=== PATIENT | male | born 1960 | race Caucasian/White ===

== ENCOUNTER 2021-11-29 00:50 | Day surgery (SDC) | payer MEDICARE, SELFPAY ==
[2021-11-15 13:56] VITALS: BMI 28.8
--- NOTE | 2021-11-26 15:22 | PM.HPGS ---
History of Present Illness History of Present Illness Consent: Risks, benefits, and alternatives have been discussed and questions answered. Patient agrees to proceed with procedure. Chief complaint: neoplasm screening Narrative: Mario Palumbo is a 61 year old male referred for colon cancer screening. He has a family history of colon cancer. His mother his maternal aunt had colon cancer Review of Systems Review of Systems: All systems reviewed & are unremarkable except as noted in HPI and below PMFSH Past Medical History Medical History (Updated 11/29/21 @ 06:34 by Nathan Albarado DO) Hyperlipidemia Hypertension Social History Social History (Updated 11/29/21 @ 07:03 by Nathan Albarado DO) Smoking packs per day: 0.5 Smoking cigarettes per day: 10.0 Years smoked: 20 Smoking pack-years: 10.00 Smoking status: Former smoker Tobacco type: cigarettes Smoking end date: 03/20/91 Additional smoking assessment comments: still vapes Alcohol intake: current Alcohol use details: only on occasion Substance use: never Substance use type: does not use Living arrangements: with family Spiritual care concerns: No Meds Home Medications and Allergies Home Medications Medication Instructions Recorded Confirmed Type amlodipine 5 mg tablet 5 mg PO DAILY 11/15/21 11/29/21 History bupropion HCl 300 mg 24 hr tablet, 300 mg PO DAILY 11/15/21 11/29/21 History extended release citalopram 20 mg tablet 20 mg PO DAILY 11/15/21 11/29/21 History loteprednol etabonate 0.5 % eye 1 drp RIGHT EYE QID 11/15/21 11/29/21 History drops,suspension mycophenolate mofetil 500 mg tablet 500 mg PO DAILY 11/15/21 11/29/21 History ofloxacin 0.3 % eye drops 4 drp EACH EYE QID 11/15/21 11/29/21 History trazodone 100 mg tablet 100 mg PO HS 11/15/21 11/29/21 History Allergies Allergy/AdvReac Type Severity Reaction Status Date / Time No Known Allergies Allergy Verified 11/29/21 06:21 Exam Resp: Auscultation: clear to auscultation bilaterally Cardio: Rate: regular rate Rhythm: regular rhythm GI: GI Palp: Yes Soft to palpation and No Tenderness to palpation present (GI) Assessment and Plan Assessment and plan (1) Colon cancer screening: Code(s): Z12.11 - Encounter for screening for malignant neoplasm of colon Status: Acute Assessment and Plan: Colonoscopy with possible biopsy or polypectomy or cautery or injection of substances.
[2021-11-29 06:22] VITALS: BP 150/90; PULSE 75; RESP 16; TEMP 36.4; O2SAT 97; BMI 28.6
[2021-11-29] MEDS: LACTATED RINGERS 1,000 ML 150 ML IV CONT (06:32)
--- NOTE | 2021-11-29 06:34 | WPDANESEPPF ---
Anes - Initial Pre Proc Eval Procedure: Operation Date: 11/29/21 07:30 Proposed Procedures p Screening Colonoscopy - Isaac Giraldo MD Date/Time: 11/29/21 06:34 Surgeon: Isaac Giraldo MD Pre Op Diagnosis: neoplasm screening Patient Data Age: 61 Gender: M Height: 1.78 m Weight: 90.6 kg Last Vital Signs Temp 36.4 C L 11/29/21 06:22 Pulse 75 11/29/21 06:22 Resp 16 11/29/21 06:22 BP 150/90 H 11/29/21 06:22 Pulse Ox 97 11/29/21 06:22 O2 Del Method Room Air 11/29/21 06:22 Allergies Allergy/AdvReac Type Severity Reaction Status Date / Time No Known Allergies Allergy Verified 11/29/21 06:21 Home Medications Medication Instructions Recorded Confirmed Type amlodipine 5 mg tablet 5 mg PO DAILY 11/15/21 11/29/21 History bupropion HCl 300 mg 24 hr tablet, 300 mg PO DAILY 11/15/21 11/29/21 History extended release citalopram 20 mg tablet 20 mg PO DAILY 11/15/21 11/29/21 History loteprednol etabonate 0.5 % eye 1 drp RIGHT EYE QID 11/15/21 11/29/21 History drops,suspension mycophenolate mofetil 500 mg tablet 500 mg PO DAILY 11/15/21 11/29/21 History ofloxacin 0.3 % eye drops 4 drp EACH EYE QID 11/15/21 11/29/21 History trazodone 100 mg tablet 100 mg PO HS 11/15/21 11/29/21 History Patient hx anesthesia problems: none Family hx anesthesia problems: none Results Review: All pre-operative results and documents have been reviewed as part of the pre-operative evaluation. [facility] Past Medical History Medical History (Updated 11/29/21 @ 06:34 by Nathan Albarado DO) Hyperlipidemia Hypertension Social History Social History (Updated 11/29/21 @ 07:03 by Nathan Albarado DO) Smoking packs per day: 0.5 Smoking cigarettes per day: 10.0 Years smoked: 20 Smoking pack-years: 10.00 Smoking status: Former smoker Tobacco type: cigarettes Smoking end date: 03/20/91 Additional smoking assessment comments: still vapes Alcohol intake: current Alcohol use details: only on occasion Substance use: never Substance use type: does not use Living arrangements: with family Spiritual care concerns: No Anes - Eval Final PreProcedure Day of Procedure 11/29/21 06:34 Patient weight: overweight Heart: regular rate and rhythm Lungs: clear to auscultation Airway: Mallampati scale class II Neurological: alert and oriented Last oral intake: >/= 8 hours ASA classification: III Emergent: no Anesthetic plan: proceed Anesthesia type and monitoring: general GIVS and standard monitoring Results Review: All pre-operative results and documents have been reviewed as part of the pre-operative evaluation. Informed Consent: The patient's anesthetic plan and its attendant risks and benefits were discussed with the patient/family/POA. Questions were solicited and answers provided to the satisfaction of the patient/family/POA.
[2021-11-29 07:46] VITALS: BP 109/68; PULSE 64; RESP 16; O2SAT 93
[2021-11-29 07:56] VITALS: BP 120/74; PULSE 60; RESP 16; O2SAT 99
[2021-11-29 08:03] VITALS: BP 131/82; PULSE 63; RESP 16; O2SAT 97
== END 2021-11-29 08:21 | disposition home or self-care (01) ==
PROVIDERS: PCP Internal Medicine; Visit Provider Internal Medicine Gastroenterology
PROC: 0DJD8ZZ Inspection of Lower Intestinal Tract, Via Natural or Artificial Opening Endoscopic (ICD-10-PCS; CPT 45378; principal; 2021-11-29 07:30)
DX: Z12.11 Encounter for screening for malignant neoplasm of colon (principal); D12.2 Benign neoplasm of ascending colon; D12.5 Benign neoplasm of sigmoid colon; Z80.0 Family history of malignant neoplasm of digestive organs; K57.30 Diverticulosis of large intestine without perforation or abscess without bleeding; K64.8 Other hemorrhoids; I10 Essential (primary) hypertension; E78.5 Hyperlipidemia, unspecified; Z87.891 Personal history of nicotine dependence
CPT/HCPCS: 45380; 45385; 88305; J2704; J7120